=== PATIENT | male | born 1940 | race Caucasian/White ===

== ENCOUNTER 2017-10-12 11:35 | Emergency (ER) | payer MEDICARE ==
[~2017-10-12] VITALS: Ht 177.8 cm; Wt 78.0 kg
[~2017-10-12 11:35] MED LIST: AMLO2.5T PO; ASPI81TA82 PO; LEXA5TAB PO; LORTA5 PO; LOVA40TA PO; METO50CR PO; TAB-TAB PO
[2017-10-12 11:38] VITALS: BP 154/71; PULSE 68; RESP 18; TEMP 97.6; O2SAT 99
[2017-10-12 12:14] LABS: BASOPHIL # 0.1 TH/MM3 (0-0.2); BASOPHIL % 0.6 % (0.0-2.0); EOSINOPHIL # 0.1 TH/MM3 (0-0.4); EOSINOPHIL % 1.4 % (0.0-4.0); HEMATOCRIT 38.8 % (39.0-51.0); HEMOGLOBIN 12.4 GM/DL (13.0-17.0); LYMPH % 12.3 % (9.0-44.0); LYMPHOCYTE # 1.2 TH/MM3 (1.0-4.8); MEAN CELL VOLUME 75.3 FL (80.0-100.0); MEAN CORPUSCULAR HGB CONC 31.9 % (32.0-36.0); MEAN PLATELET VOLUME 6.6 FL (7.0-11.0); MONO % 6.8 % (0.0-8.0); MONOCYTE # 0.7 TH/MM3 (0-0.9); NEUT % 78.9 % (16.0-70.0); PLATELET COUNT 445 TH/MM3 (150-450); RED BLOOD COUNT 5.15 MIL/MM3 (4.50-5.90); RED CELL DISTRIBUTION WIDTH 17.9 % (11.6-17.2); WHITE BLOOD COUNT 10.1 TH/MM3 (4.0-11.0)
[2017-10-12 12:25] LABS: PROTHROMBIN TIME - PATIENT 10.4 SEC (9.8-11.6)
[2017-10-12 12:33] LABS: ALBUMIN 3.2 GM/DL (3.4-5.0); ALT (GPT) 24 U/L (12-78); AST (GOT) 16 U/L (15-37); BICARBONATE 28.7 MEQ/L (21.0-32.0); BLOOD UREA NITROGEN 18 MG/DL (7-18); CHLORIDE 100 MEQ/L (98-107); CREATININE 0.95 MG/DL (0.60-1.30); GLOMERULAR FILTRATION RATE 77 ML/MIN (>89); GLUCOSE,RANDOM 103 MG/DL (74-106); SODIUM (NA) 135 MEQ/L (136-145)
[2017-10-12 12:35] LABS: ALKALINE PHOSPHATASE 95 U/L (45-117); TOTAL BILIRUBIN ADULT 0.4 MG/DL (0.2-1.0); TOTAL PROTEIN 8.2 GM/DL (6.4-8.2)
--- NOTE | 2017-10-12 12:59 | RADRPT ---
EXAM DATE/TIME: 10/12/2017 12:11 [place] COMPARISON: No previous studies available for comparison. INDICATIONS : Left leg swelling. MEDICAL HISTORY : Hypercholesterolemia. Hypertension. Arthritis. SURGICAL HISTORY : Left knee surgery. Back surgery. ENCOUNTER: Initial ACUITY: 3 months PAIN SCORE: 3/10 LOCATION: Left leg. TECHNIQUE: Venous ultrasound of the leg was performed from the inguinal ligament to the proximal calf. Real-anuel e, color Doppler and spectral tracing, compression and augmentation techniques were used. FINDINGS: There is normal compressibility of the deep venous system from the inguinal region to the proximal ca lf. No echogenic clot is seen in the lumen of the common femoral, femoral, popliteal, and posterior tibial veins. There is a normal response of the venous system to proximal and distal augmentation an d respiration. Edematous tissue is present in the leg. CONCLUSION: Negative exam with no evidence of deep venous thrombosis. Edematous tissue is present. Haider Lancaster MD on October 12, 2017 at 12:56 Board Certified Radiologist. This report was verified electronically.
[2017-10-12 13:56] VITALS: BP 163/84; PULSE 59; RESP 24; O2SAT 100
[2017-10-12] MEDS ORDERED: BACT800T5 PO (14:12)
[2017-10-12] MEDS ORDERED: CLIN150 PO (14:12)
--- NOTE | 2017-10-12 14:12 | PD ---
HPI Chief Complaint: Skin Problem Time Seen by Provider: 13:41 Travel History International Travel<30 days: No Contact w/Intl Traveler<30days: No Traveled to known affect area: No History of Present Illness HPI The patient is a 77-year-old male who presents to the emergency department for evaluation of the wound of the left leg. The patient's ex- states that she was called by the patient's children who stated they came to visit the patient and noticed his left leg was swollen. The ex- states that the patient's left leg has been swollen for several years, he does have a lesion on the anterior aspect of the knee which is draining. The patient states that his edema of the left lower extremity is chronic, for at least "5 years ", and states the surgery in the left leg was done elsewhere, he cannot recall the name of the surgeon. He does note some mild redness to the anterior aspect with a wound that is draining, but denies any fever. He is able to and bleed on the affected leg and denies any acute trauma. Symptoms are mild to moderate, there are no current alleviating or exacerbating factors. The patient does not follow up with a physician on a regular basis. PFSH Past Medical History Arthritis: Yes Asthma: No Blood Disorders: No Anxiety: Yes (MILD) Depression: Yes (MILD) Heart Rhythm Problems: No Cancer: No Cardiovascular Problems: Yes High Cholesterol: Yes Chest Pain: Yes (AT TIMES) Congestive Heart Failure: No COPD: No Diabetes: No Endocrine: No Genitourinary: No Hypertension: Yes Immune Disorder: No Musculoskeletal: Yes Neurologic: No Psychiatric: No Reproductive: No Respiratory: No Sleep Apnea: No Thyroid Disease: No Past Surgical History Oral Surgery: Yes (T&A) Other Surgery: Yes (KNEE, BACK) Social History Alcohol Use: No Tobacco Use: No Substance Use: No Allergies-Medications (Allergen,Severity, Reaction): Coded Allergies: vancomycin (Unverified Allergy, Severe, NUMBNESS IN HANDS & FEET, 05/12/17) No Known Allergies (Verified Allergy, Unknown, 10/12/17) as per pt and his significant other Reported Meds & Prescriptions Reported Meds & Active Scripts Active Bactrim DS (Sulfamethoxazole-Trimethoprim) 800-160 Mg Tab 1 Tab PO BID Cleocin (Clindamycin HCl) 150 Mg Cap 150 Mg PO Q6H 7 Days Review of Systems Except as stated in HPI: all other systems reviewed are Neg General / Constitutional: No: Fever Cardiovascular: No: Chest Pain or Discomfort Respiratory: No: Shortness of Breath Gastrointestinal: No: Nausea, Vomiting, Abdominal Pain Musculoskeletal: Positive: Edema, Pain Skin: Positive Other Neurologic: No: Paresthesia, Sensory Disturbance Physical Exam Narrative GENERAL: Awake, alert, pleasant 77-year-old male who appears his stated age and is in no acute respiratory distress. SKIN: Focused skin assessment warm/dry. HEAD: Atraumatic. Normocephalic. EYES: No injection or drainage. ENT: No nasal bleeding or discharge. Mucous membranes pink and moist. NECK: Trachea midline. No JVD. CARDIOVASCULAR: Regular rate and rhythm. No murmur appreciated. RESPIRATORY: No accessory muscle use. Clear to auscultation. Breath sounds equal bilaterally. GASTROINTESTINAL: Abdomen soft, non-tender, nondistended. MUSCULOSKELETAL: Inspection of the left lower extremity does reveal well-healed scar over the anterior aspect the left knee. The left leg is swollen in comparison to the right. There is some scar tissue noted over the inferior aspect of the knee with a shiny appearance, there is an area that is approximately 3 cm x 4 cm with a small opening which is draining clear fluid. NEUROLOGICAL: Awake and alert. No obvious cranial nerve deficits. Motor grossly within normal limits. Normal speech. PSYCHIATRIC: Appropriate mood and affect; insight and judgment normal. Data Data Last Documented VS Vital Signs Date Time Temp Pulse Resp B/P (MAP) Pulse Ox O2 Delivery O2 Flow Rate FiO2 10/12/17 13:56 59 24 163/84 (110) 100 10/12/17 11:38 97.6 Orders Orders Complete Blood Count With Diff (10/12/17 11:56) Comprehensive Metabolic Panel (10/12/17 11:56) Prothrombin Time / Inr (Pt) (10/12/17 11:56) Act Partial Throm Time (Ptt) (10/12/17 11:56) Us Leg Venous Doppler (10/12/17 ) Clindamycin 600 Mg/Ns Premix (Cleocin 60 (10/12/17 14:15) Wound Culture And Gram Stain (10/12/17 14:03) Labs Laboratory Tests Test 10/12/17 12:00 White Blood Count 10.1 TH/MM3 Red Blood Count 5.15 MIL/MM3 Hemoglobin 12.4 GM/DL Hematocrit 38.8 % Mean Corpuscular Volume 75.3 FL Mean Corpuscular Hemoglobin 24.0 PG Mean Corpuscular Hemoglobin Concent 31.9 % Red Cell Distribution Width 17.9 % Platelet Count 445 TH/MM3 Mean Platelet Volume 6.6 FL Neutrophils (%) (Auto) 78.9 % Lymphocytes (%) (Auto) 12.3 % Monocytes (%) (Auto) 6.8 % Eosinophils (%) (Auto) 1.4 % Basophils (%) (Auto) 0.6 % Neutrophils # (Auto) 8.0 TH/MM3 Lymphocytes # (Auto) 1.2 TH/MM3 Monocytes # (Auto) 0.7 TH/MM3 Eosinophils # (Auto) 0.1 TH/MM3 Basophils # (Auto) 0.1 TH/MM3 CBC Comment DIFF FINAL Differential Comment Prothrombin Time 10.4 SEC Prothromb Time International Ratio 1.0 RATIO Activated Partial Thromboplast Time 30.8 SEC Blood Urea Nitrogen 18 MG/DL Creatinine 0.95 MG/DL Random Glucose 103 MG/DL Total Protein 8.2 GM/DL Albumin 3.2 GM/DL Calcium Level 9.0 MG/DL Alkaline Phosphatase 95 U/L Aspartate Amino Transf (AST/SGOT) 16 U/L Alanine Aminotransferase (ALT/SGPT) 24 U/L Total Bilirubin 0.4 MG/DL Sodium Level 135 MEQ/L Potassium Level 4.1 MEQ/L Chloride Level 100 MEQ/L Carbon Dioxide Level 28.7 MEQ/L Anion Gap 6 MEQ/L Estimat Glomerular Filtration Rate 77 ML/MIN MDM Medical Decision Making Medical Screen Exam Complete: Yes Emergency Medical Condition: Yes Medical Record Reviewed: Yes Interpretation(s) Last Impressions Lower Extremity Ultrasound 10/12/17 0000 Signed Impressions: Service Date/Time: Thursday, October 12, 2017 12:11 - CONCLUSION: Negative exam with no evidence of deep venous thrombosis. Edematous tissue is present. Haider Lancaster MD Laboratory Tests Test 10/12/17 12:00 White Blood Count 10.1 TH/MM3 Red Blood Count 5.15 MIL/MM3 Hemoglobin 12.4 GM/DL Hematocrit 38.8 % Mean Corpuscular Volume 75.3 FL Mean Corpuscular Hemoglobin 24.0 PG Mean Corpuscular Hemoglobin Concent 31.9 % Red Cell Distribution Width 17.9 % Platelet Count 445 TH/MM3 Mean Platelet Volume 6.6 FL Neutrophils (%) (Auto) 78.9 % Lymphocytes (%) (Auto) 12.3 % Monocytes (%) (Auto) 6.8 % Eosinophils (%) (Auto) 1.4 % Basophils (%) (Auto) 0.6 % Neutrophils # (Auto) 8.0 TH/MM3 Lymphocytes # (Auto) 1.2 TH/MM3 Monocytes # (Auto) 0.7 TH/MM3 Eosinophils # (Auto) 0.1 TH/MM3 Basophils # (Auto) 0.1 TH/MM3 CBC Comment DIFF FINAL Differential Comment Prothrombin Time 10.4 SEC Prothromb Time International Ratio 1.0 RATIO Activated Partial Thromboplast Time 30.8 SEC Blood Urea Nitrogen 18 MG/DL Creatinine 0.95 MG/DL Random Glucose 103 MG/DL Total Protein 8.2 GM/DL Albumin 3.2 GM/DL Calcium Level 9.0 MG/DL Alkaline Phosphatase 95 U/L Aspartate Amino Transf (AST/SGOT) 16 U/L Alanine Aminotransferase (ALT/SGPT) 24 U/L Total Bilirubin 0.4 MG/DL Sodium Level 135 MEQ/L Potassium Level 4.1 MEQ/L Chloride Level 100 MEQ/L Carbon Dioxide Level 28.7 MEQ/L Anion Gap 6 MEQ/L Estimat Glomerular Filtration Rate 77 ML/MIN Differential Diagnosis Differential diagnosis includes DVT, chronic venous stasis, dependent edema, cellulitis, infected wound, septic knee, squamous cell carcinoma. Narrative Course The patient was initially seen and protocol by nursing staff. Ultrasound was negative for DVT. White count is normal. The patient appears to have dependent edema to left lower extremity which is chronic, does have some scaly skin changes of the anterior aspect with drainage. The patient will be treated for possible MRSA cellulitis with clindamycin and Bactrim. The patient was administered clindamycin 600 mg intravenously. The patient is advised once the drainage has cleared he should follow-up with dermatology for further evaluation of the skin lesion of the anterior for aspect of the knee. Patient is stable for outpatient follow-up. Diagnosis Primary Impression: Cellulitis of left knee Patient Instructions: General Instructions Additional Instructions: Medications as directed. Follow-up with your primary physician. Return if symptoms worsen or progress. Follow-up with dermatology after treatment for evaluation of skin lesion over the anterior inferior aspect of the left knee. Med/Other Pt SpecificInfo: Prescription(s) given Scripts Sulfamethoxazole-Trimethoprim (Bactrim DS) 800-160 Mg Tab 1 TAB PO BID for Infection, #14 TAB 0 Refills Prov: Dallas Coker MD 10/12/17 Clindamycin (Cleocin) 150 Mg Cap 150 MG PO Q6H for Infection for 7 Days, #28 CAP 0 Refills Prov: Dallas Coker MD 10/12/17 Disposition: 01 DISCHARGE HOME Condition: Stable Dallas Coker MD Oct 12, 2017 14:12
[2017-10-12] MEDS ORDERED: CLINDAMYCIN 600 MG/NS PREMIX 50 ML IV ONE (14:15)
== END 2017-10-12 15:32 | disposition home or self-care (01) ==
LOC: NEPC 11:35
DX: L03.116 Cellulitis of left lower limb (principal); B95.61 Methicillin susceptible Staphylococcus aureus infection as the cause of diseases classified elsewhere; B96.89 Other specified bacterial agents as the cause of diseases classified elsewhere; R60.0 Localized edema; E78.00 Pure hypercholesterolemia, unspecified; I10 Essential (primary) hypertension; Z87.39 Personal history of other diseases of the musculoskeletal system and connective tissue; Z86.59 Personal history of other mental and behavioral disorders; Z86.79 Personal history of other diseases of the circulatory system
CPT/HCPCS: 80053; 85025; 85610; 85730; 86403; 87070; 87077; 87186; 87205; 93971; 96365